=== PATIENT | male | born 1990 | race African-American/Black ===

== ENCOUNTER 2017-04-11 10:18 | Emergency (ER) | payer BC ==
[~2017-04-11] VITALS: Ht 180.3 cm; Wt 84.0 kg
[2017-04-11 10:24] VITALS: BP 145/65; PULSE 89; RESP 16; TEMP 98.2; O2SAT 97
[2017-04-11] MEDS ORDERED: VENTAER INH (10:56)
[2017-04-11] MEDS ORDERED: ZITHTAB PO (10:56)
[2017-04-11] MEDS ORDERED: PRED20 PO (10:56)
--- NOTE | 2017-04-11 10:57 | PD ---
HPI Chief Complaint: Cold / Flu Symptoms Time Seen by Provider: 10:49 Travel History International Travel<30 days: No Contact w/Intl Traveler<30days: No Traveled to known affect area: No History of Present Illness HPI 26-year-old male presents to the emergency department for evaluation of cough, congestion, intermittent shortness of breath and wheezing that has been ongoing for 3-4 months. Patient states that it will come and go. He states that throughout the day, his symptoms worsen. He has no medical problems and takes no prescribed medications. He denies any recent fevers. No abdominal pain. Nausea, vomiting, diarrhea. Moderate severity. No exacerbating or alleviating factors. PFSH Past Medical History Medical History: Denies Significant Hx Diminished Hearing: No Influenza Vaccination: No Past Surgical History Surgical History: No Previous Surgery Social History Alcohol Use: No Tobacco Use: No Substance Use: No Allergies-Medications (Allergen,Severity, Reaction): Coded Allergies: No Known Allergies (Unverified , 04/11/17) Reported Meds & Prescriptions Reported Meds & Active Scripts Active No Active Prescriptions or Reported Medications Review of Systems Except as stated in HPI: all other systems reviewed are Neg Physical Exam Narrative GENERAL: Well-nourished, well-developed male patient, ambulatory. Afebrile. SKIN: Focused skin assessment warm/dry. HEAD: Normocephalic. Atraumatic. ENT: Mucosa pink and moist. No erythema or exudates. No uvular edema. No uvular , palatal, or tonsillar deviation. Airway patent. Nasal turbinates appear normal without nasal blood, purulent drainage or septal hematoma. Bilateral tympanic membranes are clear without erythema or perforation. EYES: No scleral icterus. No injection or drainage. NECK: Supple, trachea midline. No JVD or lymphadenopathy. CARDIOVASCULAR: Regular rate and rhythm without murmurs, gallops, or rubs. RESPIRATORY: Breath sounds equal bilaterally. No accessory muscle use. Lungs sounds are clear to auscultation. Dry cough noted. GASTROINTESTINAL: Abdomen soft, non-tender, nondistended. MUSCULOSKELETAL: No cyanosis, or edema. BACK: Nontender without obvious deformity. No CVA tenderness. Data Data Last Documented VS Vital Signs Date Time Temp Pulse Resp B/P (MAP) Pulse Ox O2 Delivery O2 Flow Rate FiO2 04/11/17 10:24 98.2 89 16 145/65 (91) 97 MDM Medical Decision Making Medical Screen Exam Complete: Yes Emergency Medical Condition: Yes Medical Record Reviewed: Yes Differential Diagnosis URI versus bronchitis versus pneumonia versus allergic rhinitis Narrative Course 26-year-old male presents to the emergency department for evaluation of cough, congestion, intermittent shortness of breath and wheezing for several months. Patient appears well on exam. He'll be discharged with a prescription for azithromycin, prednisone, albuterol inhaler. He is to follow up with his primary care physician returning here for any acute worsening of symptoms. He verbalizes agreement and understanding. The patient was discharged in stable condition with instructions, including return instructions and follow up instructions. Diagnosis Primary Impression: URI (upper respiratory infection) Qualified Codes: J06.9 - Acute upper respiratory infection, unspecified Referrals: Primary Care Physician call for appointment Patient Instructions: General Instructions, Upper Respiratory Infection (ED) Additional Instructions: Take antibiotic as directed until gone. Use albuterol inhaler as directed as needed for shortness of breath/wheezing. Take prednisone as directed until gone. Follow-up with your primary care physician. Return to the emergency department for any acute worsening of symptoms. Med/Other Pt SpecificInfo: Prescription(s) given Scripts Albuterol 18 GM Inh (Ventolin Hfa 18 GM Inh) 90 Mcg/Act Aer 1 PUFF INH Q4H Y for SHORTNESS OF BREATH, #1 INHALER 0 Refills Prov: Gauri Castro 04/11/17 Prednisone (Prednisone) 20 Mg Tab 40 MG PO DAILY, #10 TAB 0 Refills Take 40 mg (2 tablets) daily for 5 days Prov: Gauri Castro 04/11/17 Azithromycin (Zithromax Z-Christiano) 250 Mg Dspk 250 MG PO DIRECTED for Infection, #1 DSPK 0 Refills 500 MG (2 tabs) day 1, then 1 tab days 2-5. Prov: Gauri Castro 04/11/17 Disposition: 01 DISCHARGE HOME Condition: Stable Gauri Castro Apr 11, 2017 10:57
== END 2017-04-11 11:11 | disposition home or self-care (01) ==
LOC: PHEFT 10:18
DX: J06.9 Acute upper respiratory infection, unspecified (principal); R06.2 Wheezing
CPT/HCPCS: 99283